=== PATIENT | female | born 1955 | race Hispanic/Latino ===

== ENCOUNTER 2017-01-06 12:11 | Outpatient (CLI) | payer OTHER ==
[2017-01-06] MEDS ORDERED: PROVENTIL IH ONE (12:21)
== END 2017-01-06 12:12 | disposition home or self-care (01) ==
LOC: PF 12:11
PROVIDERS: ATTEND Internal Medicine
DX: J44.9 Chronic obstructive pulmonary disease, unspecified (principal); J80 Acute respiratory distress syndrome; K21.9 Gastro-esophageal reflux disease without esophagitis; K42.9 Umbilical hernia without obstruction or gangrene; E05.80 Other thyrotoxicosis without thyrotoxic crisis or storm; R07.9 Chest pain, unspecified; K76.9 Liver disease, unspecified; F32.9 Major depressive disorder, single episode, unspecified
CPT/HCPCS: 94060; 94640; 94729